=== PATIENT | male | born 1960 | race Caucasian/White ===

== ENCOUNTER 2017-03-21 06:41 | Emergency (ER) | payer BC ==
--- NOTE | 2017-03-21 07:39 | ER Document Report ---
ED Cardiac - General Chief Complaint: Hypertension Stated Complaint: BLOOD PRESSURE PROBLEM Time Seen by Provider: 03/21/17 07:39 TRAVEL OUTSIDE OF THE [place] IN LAST 30 DAYS: No Past Medical History - Social History Patient has suicidal ideation: No Patient has homicidal ideation: No Renal/ Medical History: Denies: Hx Peritoneal Dialysis Physical Exam - Vital signs Vitals: Temp Pulse Resp BP Pulse Ox 98.7 F 64 18 169/87 H 97 03/21/17 06:45 03/21/17 06:45 03/21/17 06:45 03/21/17 06:45 03/21/17 06:45 Course - Vital Signs Vital signs: Temp Pulse Resp BP Pulse Ox 98.7 F 64 18 169/87 H 97 03/21/17 06:45 03/21/17 06:45 03/21/17 06:45 03/21/17 06:45 03/21/17 06:45
--- NOTE | 2017-03-21 07:58 | ER Document Report ---
ED General - General Chief Complaint: Blood Pressure Problem Stated Complaint: BLOOD PRESSURE PROBLEM Time Seen by Provider: 03/21/17 07:39 Mode of Arrival: Ambulatory Information source: Patient, Relative TRAVEL OUTSIDE OF THE [place] IN LAST 30 DAYS: No - HPI Patient complains to provider of: headache, htn Onset: This morning Onset/Duration: Gradual Quality of pain: Dull Severity: Mild Associated symptoms: None Exacerbated by: Denies Relieved by: Denies Recently seen / treated by doctor: Yes Notes: Patient is a 56-year-old male with history of hypertension. Patient recently seen by his primary care provider and started on different blood pressure medicine. This morning, patient noted his blood pressure was elevated describing blood pressures of 188/100 along with a headache. No focal neurologic complaints. No visual changes. Patient called his provider and was told to come to the emergency department by the nurse triage line. The time is arrival, patient's blood pressure has improved. His headache has improved. Denies any focal neurologic complaints. - Related Data Allergies/Adverse Reactions: No Known Allergies Allergy (Verified 03/21/17 08:02) Home Medications: Current Home Medications Aspirin [Aspirin EC] 81 mg PO DAILY 03/21/17 [History] Cyanocobalamin (Vitamin B-12) [Vitamin B-12] 1,000 mcg PO DAILY 03/21/17 [ History] Esomeprazole Magnesium [Esomeprazole Magnesium] 1 cap PO DAILY 03/21/17 [History ] Metformin HCl [Metformin HCl ER] 500 mg PO BID 03/21/17 [History] Metoprolol Succinate [Toprol Xl] 50 mg PO BID 03/21/17 [History] Ramipril [Altace 10 mg Capsule] 1 cap PO DAILY 03/21/17 [History] Rosuvastatin Calcium [Rosuvastatin Calcium] 1 tab PO DAILY 03/21/17 [History] Past Medical History - General Information source: Patient - Social History Smoking Status: Never Smoker Family History: Reviewed & Not Pertinent Patient has suicidal ideation: No Patient has homicidal ideation: No - Past Medical History Cardiac Medical History: Reports: Hx Coronary Artery Disease, Hx Hypertension Endocrine Medical History: Reports: Hx Diabetes Mellitus Type 2 Renal/ Medical History: Denies: Hx Peritoneal Dialysis Review of Systems - Review of Systems Neurological/Psychological: Headaches -: Yes All other systems reviewed and negative Physical Exam - Vital signs Vitals: Temp Pulse Resp BP Pulse Ox 98.7 F 64 18 169/87 H 97 03/21/17 06:45 03/21/17 06:45 03/21/17 06:45 03/21/17 06:45 03/21/17 06:45 Interpretation: Normal, Other - Blood pressure rechecked and was 144/84 in the room - General General appearance: Appears well, Alert - HEENT Head: Normocephalic, Atraumatic Eyes: Normal Pupils: PERRL - Respiratory Respiratory status: No respiratory distress Chest status: Nontender Breath sounds: Normal Chest palpation: Normal - Cardiovascular Rhythm: Regular Heart sounds: Normal auscultation Murmur: No - Abdominal Inspection: Normal Distension: No distension Bowel sounds: Normal Tenderness: Nontender Organomegaly: No organomegaly - Back Back: Normal, Nontender - Extremities General upper extremity: Normal inspection, Nontender, Normal color, Normal ROM , Normal temperature General lower extremity: Normal inspection, Nontender, Normal color, Normal ROM , Normal temperature, Normal weight bearing. No: Som's sign - Neurological Neuro grossly intact: Yes Cognition: Normal Orientation: AAOx4 [place] Coma Scale Eye Opening: Spontaneous [place] Coma Scale Verbal: Oriented [place] Coma Scale Motor: Obeys Commands [place] Coma Scale Total: 15 Speech: Normal Motor strength normal: LUE, RUE, LLE, RLE Sensory: Normal - Psychological Associated symptoms: Normal affect, Normal mood - Skin Skin Temperature: Warm Skin Moisture: Dry Skin Color: Normal Course - Re-evaluation Re-evalutation: 03/21/17 08:24 Blood pressure here has been relatively normal and does not require any intervention. I have discussed need to take blood pressure daily, keep a log, discuss with his primary care provider. Will discharge home. - Vital Signs Vital signs: Temp Pulse Resp BP Pulse Ox 98.7 F 59 L 16 146/84 H 96 03/21/17 06:45 03/21/17 07:58 03/21/17 07:58 03/21/17 07:58 03/21/17 07:58 - Diagnostic Test Radiology reviewed: Reports reviewed Radiology results interpreted by me: 03/21/17 08:24 CT head negative per radiologist Discharge - Discharge Clinical Impression: Hypertension Condition: Good Disposition: HOME, SELF-CARE Instructions: High Blood Pressure ([facility]) Additional Instructions: Continue on your blood pressure medication as prescribed. Follow-up with your primary care provider. Return if worse.
--- NOTE | 2017-03-21 08:18 | RADIOLOGY REPORT (SQ) ---
EXAM DESCRIPTION: CT HEAD WITHOUT COMPLETED DATE/TIME: 03/21/2017 8:07 am REASON FOR STUDY: headache, htn COMPARISON: None. TECHNIQUE: Axial images acquired through the brain without intravenous contrast. Images reviewed wi th bone, brain and subdural windows. Images stored on PACS. All CT scanners at this facility use dose modulation, iterative reconstruction, and/or weight based d osing when appropriate to reduce radiation dose to as low as reasonably achievable (ALARA). [facility]: Dose Right [facility]: CareDose [facility]: Dose Right [facility]: Teradose 4D [facility]: [employer] RADIATION DOSE: Up-to-date CT equipment and radiation dose reduction techniques were employed. CTDIv ol: 64.6 mGy. DLP: 1163 mGy-cm. mGy. LIMITATIONS: None. FINDINGS: VENTRICLES: Normal size and contour. CEREBRUM: No masses. No hemorrhage. No midline shift. No evidence for acute infarction. Normal gra y/white matter differentiation. No areas of low density in the white matter. CEREBELLUM: No masses. No hemorrhage. No alteration of density. No evidence for acute infarction. EXTRAAXIAL SPACES: No fluid collections. No masses. ORBITS AND GLOBE: No intra- or extraconal masses. Normal contour of globe without masses. CALVARIUM: No fracture. PARANASAL SINUSES: No fluid or mucosal thickening. SOFT TISSUES: No mass or hematoma. OTHER: No other significant finding. IMPRESSION: NORMAL BRAIN CT WITHOUT CONTRAST. EVIDENCE OF ACUTE STROKE: NO. COMMENT: Quality ID # [id number]: Final reports with documentation of one or more dose reduction techniques (e.g., Automated exposure control, adjustment of the mA and/or kV according to patient size, use of iterative reconstruction technique) TECHNICAL DOCUMENTATION: JOB ID: [id number] [employer]- All Rights Reserved
[2017-03-21 08:44] VITALS: BP 147/86
== END 2017-03-21 08:45 | disposition home or self-care (01) ==
LOC: ER 06:41
DX: R51 Headache (principal); I10 Essential (primary) hypertension; I25.10 Atherosclerotic heart disease of native coronary artery without angina pectoris
CPT/HCPCS: 70450; 99284